=== PATIENT | female | born 1975 | race Caucasian/White ===

== ENCOUNTER 2016-06-10 17:54 | Emergency (ER) | payer OTHER ==
[2016-06-10 18:08] VITALS: BP 159/108; PULSE 76; TEMP 99.1; BMI 31.8
--- NOTE | 2016-06-10 18:38 | PDOC ---
History of Present Illness - General Chief Complaint: Injury Stated Complaint: INJURY Time Seen by Provider: 06/10/16 18:35 History Source: Patient Exam Limitations: No Limitations - History of Present Illness Initial Comments: CHIEF COMPLAINT: 40 y/o afebrile female with laceration to right foot. HISTORY OF PRESENT ILLNESS: The patient states a cutting knife fell on to her right foot 24 hours ago. At the time she cleaned it and applied steri strips to the area. She states she is here for tetanus and to bandage it. She also admits she did not take her BP meds today. She denies head trauma, [place], LOC, changes in vision, numbness/tingling in affected foot, decreased ROM of affected foot. Vital signs on arrival are notable for BP of 159/108. REVIEW OF SYSTEMS: GENERAL/CONSTITUTIONAL: No fever/chills. No weakness. No weight change. HEAD, EYES, EARS, NOSE AND THROAT: No change in vision. No ear pain or discharge. No sore throat. CARDIOVASCULAR: No chest pain or shortness of breath. RESPIRATORY: No cough, wheezing, or hemoptysis. GASTROINTESTINAL: No abd pain, nausea, vomiting, diarrhea. GENITOURINARY: No dysuria, frequency, or change in urination. MUSCULOSKELETAL: +laceration to right foot. No joint or muscle swelling or pain. No neck or back pain. SKIN: No rash or easy bruising. NEUROLOGIC: No headache, vertigo, loss of consciousness, or loss of sensation. PHYSICAL EXAM: GENERAL: The patient is awake, alert, and fully oriented, in no acute distress. She is well appearing and ambulatory. HEAD: Normal with no signs of trauma. EXTREMITIES: Normal range of motion, no edema. 2 small lacerations to dorsum of right foot at the base of the 1st toe. Lacerations appear to have margins well approximated by steri strips. No surrounding erythema or edema. No streaking. Full ROM of affected toe or foot. NEUROLOGICAL: Normal speech, normal gait. CN II-XII grossly intact. PSYCH: Normal mood, normal affect. SKIN: Warm, dry, normal turgor, no rashes or lesions noted. Past History - Past Medical History Allergies/Adverse Reactions: Allergies Allergy/AdvReac Type Severity Reaction Status Date / Time No Known Allergies Allergy Verified 06/10/16 18:08 Home Medications: Ambulatory Orders Losartan/Hydrochlorothiazide [Losartan-Hctz 100-12.5 mg Tab] 1 each PO ASDIR Metoprolol Succinate [Toprol Xl -] 25 mg PO DAILY 01/30/16 Atorvastatin Ca [Lipitor] 40 mg PO HS 06/10/16 HTN: Yes - Surgical History Abdominal Surgery: Yes (HERNIA) Appendectomy: Yes Cardiac Surgery: No (CARDIAC CATH --NEG) - Family Disease History Family Disease History: Diabetes: Mother, Heart Disease: Father, Mother - Immunization History Immunization Up to Date: Yes - Psycho/Social/Smoking Cessation Hx Anxiety: No Suicidal Ideation: No Smoking History: Current some day smoker Have you smoked in the past 12 months: Yes Number of Cigarettes Smoked Daily: 1 Information on smoking cessation initiated: No Hx Alcohol Use: No Drug/Substance Use Hx: No Substance Use Type: None *Physical Exam - Vital Signs Last Vital Signs Temp Pulse Resp BP Pulse Ox 99.1 F 76 18 159/108 98 06/10/16 18:04 06/10/16 18:04 06/10/16 18:04 06/10/16 18:04 06/10/16 18:04 Medical Decision Making - Medical Decision Making A/P: 40 y/o female with lacerations to right foot that she steri stripped 24 hours ago. The lacerations appear to be healing well. Will give tetanus and apply scott bandage. Instructed the patient to keep wound clean and dry and let strips fall off on their own. Suggested she return to the ER with any worsening or concerning symptoms. The patient verbalizes understanding of all instructions, has no further questions and is awaiting discharge. *DC/Admit/Observation/Transfer Diagnosis at time of Disposition: Laceration of foot Qualifiers: Encounter type: initial encounter Laterality: right Qualified Code(s): S91.311A - Laceration without foreign body, right foot, initial encounter - Discharge Dispostion Disposition: HOME Condition at time of disposition: Good - Referrals Referrals: Jose Dietrich MD [Primary Care Provider] - - Patient Instructions Printed Discharge Instructions: DI for Laceration Repair Steri-Strips Additional Instructions: Discharge Instructions: -You received a tetanus shot today; you are now immunized for 10 years -Keep wound clean -Let the steri strips fall off on their own -Return to the ER with any worsening or concerning symptoms
[2016-06-10] MEDS ORDERED: DIPHTH,PERTUSS(ACELL),TET 0.5 ML DISP.SYRIN IM ONE (18:46)
== END 2016-06-10 19:23 | disposition home or self-care (01) ==
LOC: JERFT 17:54
PROC: 3E0234Z Introduction of Serum, Toxoid and Vaccine into Muscle, Percutaneous Approach (ICD-10-PCS; principal; 2016-06-10)
DX: S91.311A Laceration without foreign body, right foot, initial encounter (principal); W26.0XXA Contact with knife, initial encounter; Y93.89 Activity, other specified; Y92.038 Other place in apartment as the place of occurrence of the external cause
CPT/HCPCS: 90715; 99281-25

== ENCOUNTER 2021-06-16 19:39 | Emergency (ER) | payer OTHER ==
[2021-06-16 20:08] VITALS: BP 147/95; PULSE 80; TEMP 98.3; BMI 35.4
[2021-06-16] MEDS ORDERED: KETOROLAC TROMETHAMINE 30 MG/1 ML VIAL IM ONE (20:46)
[2021-06-16] MEDS ORDERED: KETOROLAC TROMETHAMINE 30 MG/1 ML VIAL ONE (20:47)
== END 2021-06-16 20:54 | disposition home or self-care (01) ==
LOC: JERFT 19:39
PROC: 3E0233Z Introduction of Anti-inflammatory into Muscle, Percutaneous Approach (ICD-10-PCS; principal; 2021-06-16)
DX: H66.92 Otitis media, unspecified, left ear (principal)
CPT/HCPCS: 99284-25